=== PATIENT | female | born 1950 | race Caucasian/White ===

== ENCOUNTER 2024-01-27 21:28 | Inpatient (IN) | payer MEDICARE, OTHER, MEDICAID ==
[~2024-01-27] VITALS: Ht 165.1 cm; Wt 83.9 kg
[~2024-01-27 21:28] MED LIST: ACET650T10 PO; AMLO5TAB4 PO; ATOR20TA PO; BACL20TA PO; CALCIUM PO; CLOP75TA15 PO; FURO-151 PO; GABA-534 PO; HYDR-4354 PO; ISOS30TA86 PO; LEVE500T9 PO; LEVO125T PO; LORA-672 PO; LOSA50TA3 PO; MAALOX PO; MAGN400O6 PO; MULTIVITAMIN W/MIN PO; PHEN32.46 PO; SENNA PO; TIZA4CAP PO; VIT PO
[2024-01-27] MEDS ORDERED: LORAZEPAM 2 MG/1 ML VIAL IV ONE (22:30)
[2024-01-27] MEDS ORDERED: levETIRAcetam 500 MG/5 ML VIAL IV ONE (22:35)
[2024-01-27] MEDS: levETIRAcetam IV 500 MG in IV DEXTROSE 5% 100 ML IV ONE (22:42)
[2024-01-27] MEDS: IV NORMAL SALINE 500 ML BAG IV ONE (22:42)
[2024-01-27 22:52] LABS: CALCIUM 9.5 mg/dL (8.5-10.1); CARBON DIOXIDE 31 mmol/L (21-32); CHLORIDE 101 mmol/L (98-107); CREATININE 2.3 mg/dL (0.6-1.3); GLUCOSE 114 mg/dL (74-106); POTASSIUM 2.9 mmol/L (3.5-5.1); SODIUM SERUM 141 mmol/L (136-145); UREA NITROGEN, BLOOD 27 mg/dL (7-18)
[2024-01-27 22:58] LABS: ALANINE AMINOTRANSFERASE 12 U/L (14-59); ALBUMIN 2.8 g/dL (3.4-5.0); ALKALINE PHOSPHATASE 83 U/L (50-136); ASPARTATE AMINOTRANSFERASE 12 U/L (15-37); BILIRUBIN,DIRECT 0.2 mg/dL (0.0-0.2); BILIRUBIN,TOTAL 0.8 mg/dL (0.2-1.0); TOTAL PROTEIN, SERUM 6.1 g/dL (6.4-8.2)
[2024-01-27] MEDS: IV NORMAL SALINE 500 ML IV ONE (23:16)
[2024-01-28] MEDS: POTASSIUM CHLORIDE 50 ML IV SCH (00:13)
[2024-01-28] MEDS ORDERED: LIOT5TAB7 PO (00:23)
[2024-01-28] MEDS ORDERED: [UNRECOGNIZED DRUG - CODE] PO (00:23)
[2024-01-28] MEDS ORDERED: RIBO1TAB4 PO (00:23)
[2024-01-28] MEDS ORDERED: PSYL0.5211 PO (00:23)
[2024-01-28] MEDS ORDERED: SENN-261 PO (00:23)
[2024-01-28] MEDS ORDERED: POLY17PO4 PO (00:23)
[2024-01-28] MEDS ORDERED: norco PO (00:23)
[2024-01-28] MEDS ORDERED: ZINC56.713 TP (00:23)
[2024-01-28] MEDS ORDERED: NA P133E RC (00:23)
[2024-01-28] MEDS ORDERED: BISA10SU11 RC (00:23)
[2024-01-28] MEDS ORDERED: CLON0.3P TD (00:23)
[2024-01-28] MEDS ORDERED: OXYC-132 PO (00:23)
[2024-01-28] MEDS ORDERED: MULT-1045 PO (00:23)
[2024-01-28] MEDS ORDERED: diazepam IM (00:23)
[2024-01-28] MEDS ORDERED: APIX2.5T PO (00:23)
[2024-01-28] MEDS ORDERED: LOSA100T3 PO (00:23)
[2024-01-28] MEDS ORDERED: CLON0.1T PO (00:23)
[2024-01-28] MEDS ORDERED: FULV250S IM (00:23)
[2024-01-28] MEDS ORDERED: LUBI24CA5 PO (00:23)
[2024-01-28] MEDS ORDERED: ATOR10TA PO (00:23)
[2024-01-28] MEDS ORDERED: THYR180T2 PO (00:23)
[2024-01-28] MEDS ORDERED: PREG75CA PO (00:23)
[2024-01-28] MEDS ORDERED: DOCU100C36 PO (00:23)
[2024-01-28 00:25] LABS: BASOPHILS # (AUTO) 0.1 K/UL (0.0-0.2); EOSINOPHILS # (AUTO) 0.1 K/uL (0.0-0.7); EOSINOPHILS % (AUTO) 1.5 % (0.0-7.0); HEMATOCRIT 38.8 % (31.2-41.9); HEMOGLOBIN 12.9 g/dL (10.9-14.3); LYMPHOCYTES # (AUTO) 1.3 K/uL (0.8-4.8); LYMPHOCYTES % (AUTO) 26.7 % (20.5-51.5); MEAN CORPUSCULAR HEMOGLOBIN 33.7 uug (24.7-32.8); MEAN CORPUSCULAR HGB CONC 33 g/dL (32.3-35.6); MEAN CORPUSCULAR VOLUME 101.7 fL (75.5-95.3); MONOCYTES # (AUTO) 0.3 K/uL (0.1-1.30); MONOCYTES % (AUTO) 7.2 % (0.0-11.0); NEUTROPHILS % (AUTO) 62.6 % (38.5-71.5); PLATELET COUNT (AUTO) 192 K/uL (179-408); RED BLOOD CELL COUNT(AUTO) 3.81 MIL/uL (3.63-4.92); RED CELL DISTRIBUTION WIDTH 17.1 % (12.3-17.7); WHITE BLOOD COUNT (AUTO) 4.8 K/uL (3.8-11.8)
[2024-01-28 00:29] LABS: DIFFERENTIAL COMMENT 1
[2024-01-28] MEDS ORDERED: POTASSIUM CHLORIDE 200 ML ONE (00:42)
[2024-01-28] MEDS ORDERED: ONDANSETRON 4 MG/2 ML VIAL IV PRN (01:30)
[2024-01-28] MEDS ORDERED: REMEDY ESSENTIAL ZINC PASTE 113 GM TP PRN (01:30)
[2024-01-28] MEDS ORDERED: MAGNESIUM HYDROXIDE 30 ML LIQUID UDC PO PRN (01:30)
[2024-01-28 05:19] LABS: BASOPHILS # (AUTO) 0.1 K/UL (0.0-0.2); BASOPHILS % (AUTO) 1.3 % (0.0-2.0); EOSINOPHILS # (AUTO) 0.1 K/uL (0.0-0.7); EOSINOPHILS % (AUTO) 1.4 % (0.0-7.0); HEMATOCRIT 40.6 % (31.2-41.9); HEMOGLOBIN 13.1 g/dL (10.9-14.3); LYMPHOCYTES # (AUTO) 1.3 K/uL (0.8-4.8); MEAN CORPUSCULAR HEMOGLOBIN 33.3 uug (24.7-32.8); MEAN CORPUSCULAR HGB CONC 32 g/dL (32.3-35.6); MEAN CORPUSCULAR VOLUME 103.3 fL (75.5-95.3); MONOCYTES # (AUTO) 0.3 K/uL (0.1-1.30); MONOCYTES % (AUTO) 6.1 % (0.0-11.0); NEUTROPHILS # (AUTO) 2.9 K/uL (1.8-8.9); NEUTROPHILS % (AUTO) 63.2 % (38.5-71.5); PLATELET COUNT (AUTO) 175 K/uL (179-408); RED BLOOD CELL COUNT(AUTO) 3.93 MIL/uL (3.63-4.92); RED CELL DISTRIBUTION WIDTH 17.5 % (12.3-17.7); WHITE BLOOD COUNT (AUTO) 4.6 K/uL (3.8-11.8)
[2024-01-28 05:44] LABS: DIFFERENTIAL COMMENT 1
[2024-01-28 05:57] LABS: THYROID STIMULATING HORMONE 1.902 mIU/mL (0.358-3.740)
[2024-01-28 05:59] LABS: ALANINE AMINOTRANSFERASE 11 U/L (14-59); ALBUMIN 2.7 g/dL (3.4-5.0); ALKALINE PHOSPHATASE 83 U/L (50-136); ASPARTATE AMINOTRANSFERASE 7 U/L (15-37); BILIRUBIN,DIRECT 0.2 mg/dL (0.0-0.2); BILIRUBIN,TOTAL 0.8 mg/dL (0.2-1.0); CALCIUM 8.7 mg/dL (8.5-10.1); CARBON DIOXIDE 29 mmol/L (21-32); CHLORIDE 105 mmol/L (98-107); GLUCOSE 104 mg/dL (74-106); MAGNESIUM 1.8 mg/dL (1.8-2.4); PHOSPHOROUS 4.6 mg/dL (2.5-4.9); POTASSIUM 3.6 mmol/L (3.5-5.1); SODIUM SERUM 143 mmol/L (136-145); TOTAL PROTEIN, SERUM 6.2 g/dL (6.4-8.2); UREA NITROGEN, BLOOD 23 mg/dL (7-18)
[2024-01-28] MEDS: PANTOPRAZOLE SODIUM 40 MG TABLET.DR PO SCH (07:00)
[2024-01-28] MEDS: levETIRAcetam IV 1,000 MG in IV DEXTROSE 5% 100 ML IV SCH (08:26)
[2024-01-28] MEDS ORDERED: LORAZEPAM 2 MG/1 ML VIAL ONE (08:46)
[2024-01-28] MEDS: LORAZEPAM 2 MG/1 ML VIAL IV ONE ×2 (08:47→13:46)
[2024-01-28] MEDS ORDERED: levETIRAcetam IV 500 MG in IV DEXTROSE 5% 100 ML IV SCH (09:00)
[2024-01-28] MEDS ORDERED: LORAZEPAM 2 MG/1 ML VIAL IV ONE (13:45)
[2024-01-28 14:48] LABS: *BILIRUBIN,URIN NEGATIVE (NEGATIVE); *CLARITY,URINE CLEAR (CLEAR); *COLOR,URINE YELLOW (YELLOW); *KETONES,URINE NEGATIVE (NEGATIVE); *PROTEIN,URINE 1+ (NEGATIVE); *UROBILINOGEN,URINE 0.2 E.U./dl (NORMAL); LEUKOCYTE ESTERASE ,URINE NEGATIVE (NEGATIVE); NITRITE, URINE NEGATIVE (NEGATIVE); PH,URINE 5.5 (5.0-8.0); UGLUCOSE NEGATIVE (NEGATIVE)
[2024-01-28 14:57] LABS: *BLOOD, URINE TRACE (NEGATIVE)
[2024-01-28] MEDS ORDERED: DIAZ5DIS4 IM (15:18)
[2024-01-28] MEDS ORDERED: HYDR-3976 PO (15:18)
[2024-01-28] MEDS ORDERED: DENO120V SQ (15:21)
[2024-01-28 15:46] LABS: BACTERIA,URINE FEW /HPF (NONE SEEN); RBC,URINE 0-3 /HPF (0-3); SQUAMOUS EPITHELIAL CELL,UR FEW /HPF (NONE SEEN); WBC,URINE 0-3 /HPF (0-3)
[2024-01-28 16:24] VITALS: BP 124/48; TEMP 97.8; O2SAT 93
[2024-01-28] MEDS ORDERED: levETIRAcetam 500 MG TABLET PO SCH (17:00)
[2024-01-28] MEDS ORDERED: Medication Not On Formulary EA (Lubiprostone (Amitiza) 24 MCG) PO SCH (17:00)
[2024-01-28] MEDS ORDERED: LORAZEPAM 2 MG/1 ML VIAL IV PRN (17:00)
[2024-01-28 18:19] VITALS: TEMP 99.3
[2024-01-28] MEDS: BACLOFEN 20 MG TABLET PO SCH (18:25)
[2024-01-28] MEDS: APIXABAN 2.5 MG TABLET PO SCH (18:25)
[2024-01-28] MEDS: IV NS 1000 ML 1,000 ML IV PRN (18:29)
[2024-01-28] MEDS: DOCUSATE SODIUM 100 MG CAPSULE PO SCH (20:39)
[2024-01-28] MEDS: ATORVASTATIN 10 MG TABLET PO SCH (20:40)
[2024-01-28] MEDS: levETIRAcetam 500 MG TABLET PO SCH (20:40)
[2024-01-28] MEDS: SENNOSIDES 1 TABLET PO SCH (20:40)
[2024-01-28] MEDS ORDERED: CLONIDINE-TTS 3 PATCH TD SCH (21:00)
[2024-01-29 00:12] VITALS: BP 96/46; O2SAT 95
[2024-01-29 06:20] VITALS: BP 147/95; TEMP 98.1; O2SAT 94
[2024-01-29] MEDS: LIOTHYRONINE SODIUM 5 MCG TABLET PO SCH (06:45)
[2024-01-29] MEDS: THYROID 60 MG TABLET PO SCH (06:46)
[2024-01-29 07:55] VITALS: BP 137/81; TEMP 98.6; O2SAT 94
[2024-01-29] MEDS ORDERED: Medication Not On Formulary EA (Multivitamin (Multi-Vitamin Daily) 1 EACH) PO SCH (09:00)
[2024-01-29] MEDS ORDERED: THYROID 180 MG PO SCH (09:00)
[2024-01-29 12:00] VITALS: BP 149/59; TEMP 98.1; O2SAT 95
[2024-01-29] MEDS: LOSARTAN POTASSIUM 50 MG TABLET PO SCH (12:39)
[2024-01-29] MEDS: ISOSORBIDE MONONITRATE 30 MG TAB.SR.24H PO SCH (12:40)
[2024-01-29] MEDS: MIRALAX 17 GM POWD.PACK PO SCH (12:40)
[2024-01-29] MEDS: levETIRAcetam IV 1,000 MG in IV DEXTROSE 5% 100 ML IV SCH (12:40)
[2024-01-29] MEDS: MULTIVITAMINS,THERAPEUTIC TABLET PO SCH (13:24)
[2024-01-29] MEDS: HYDROCODONE/APAP 10-325 MG TABLET PO PRN (14:03)
[2024-01-29 16:00] LABS: *BILIRUBIN,URIN NEGATIVE (NEGATIVE); *BLOOD, URINE 3+ (NEGATIVE); *CLARITY,URINE CLEAR (CLEAR); *COLOR,URINE YELLOW (YELLOW); *KETONES,URINE 1+ (NEGATIVE); *PROTEIN,URINE NEGATIVE (NEGATIVE); *UROBILINOGEN,URINE 0.2 E.U./dl (NORMAL); LEUKOCYTE ESTERASE ,URINE NEGATIVE (NEGATIVE); NITRITE, URINE NEGATIVE (NEGATIVE); UGLUCOSE NEGATIVE (NEGATIVE)
[2024-01-29 16:06] LABS: *CREATININE,URINE 32.7 mg/dL (30-125); *URINE TOTAL PROTEIN RANDOM 12.1 mg/dL (<150/24HR)
[2024-01-29 16:19] LABS: BACTERIA,URINE NONE SEEN /HPF (NONE SEEN); RBC,URINE 0-3 /HPF (0-3); SQUAMOUS EPITHELIAL CELL,UR FEW /HPF (NONE SEEN); WBC,URINE 0-3 /HPF (0-3)
[2024-01-29 16:30] VITALS: BP 125/44; TEMP 98; O2SAT 93
[2024-01-29 20:09] VITALS: BP 123/52; TEMP 98; O2SAT 92
[2024-01-30 00:11] VITALS: BP 108/42; TEMP 98.7; O2SAT 93
[2024-01-30 06:27] LABS: BASOPHILS # (AUTO) 0.1 K/UL (0.0-0.2); BASOPHILS % (AUTO) 1.5 % (0.0-2.0); EOSINOPHILS # (AUTO) 0.1 K/uL (0.0-0.7); EOSINOPHILS % (AUTO) 1.9 % (0.0-7.0); HEMATOCRIT 32.8 % (31.2-41.9); LYMPHOCYTES # (AUTO) 1.3 K/uL (0.8-4.8); LYMPHOCYTES % (AUTO) 35.3 % (20.5-51.5); MEAN CORPUSCULAR HEMOGLOBIN 33.8 uug (24.7-32.8); MEAN CORPUSCULAR HGB CONC 34 g/dL (32.3-35.6); MEAN CORPUSCULAR VOLUME 100.8 fL (75.5-95.3); MONOCYTES # (AUTO) 0.3 K/uL (0.1-1.30); MONOCYTES % (AUTO) 8.1 % (0.0-11.0); NEUTROPHILS # (AUTO) 1.9 K/uL (1.8-8.9); NEUTROPHILS % (AUTO) 53.2 % (38.5-71.5); PLATELET COUNT (AUTO) 179 K/uL (179-408); RED BLOOD CELL COUNT(AUTO) 3.26 MIL/uL (3.63-4.92); RED CELL DISTRIBUTION WIDTH 16.5 % (12.3-17.7); WHITE BLOOD COUNT (AUTO) 3.6 K/uL (3.8-11.8)
[2024-01-30 06:32] LABS: CALCIUM 7.8 mg/dL (8.5-10.1); CARBON DIOXIDE 28 mmol/L (21-32); CHLORIDE 108 mmol/L (98-107); CREATININE 0.5 mg/dL (0.6-1.3); GLUCOSE 114 mg/dL (74-106); SODIUM SERUM 143 mmol/L (136-145); UREA NITROGEN, BLOOD 11 mg/dL (7-18)
[2024-01-30 06:37] VITALS: BP 124/49; TEMP 97.8; O2SAT 93
[2024-01-30 06:41] LABS: POTASSIUM 2.7 mmol/L (3.5-5.1)
[2024-01-30 07:37] LABS: DIFFERENTIAL COMMENT 1
[2024-01-30 07:47] VITALS: BP 154/66; TEMP 98.3; O2SAT 97
[2024-01-30] MEDS: POTASSIUM CHLORIDE 50 ML IV SCH (08:23)
[2024-01-30 11:52] VITALS: BP 153/63; TEMP 98.8; O2SAT 95
[2024-01-30] MEDS: CLONIDINE-TTS 3 PATCH TD SCH (15:24)
[2024-01-30 16:01] VITALS: BP 173/70; TEMP 98; O2SAT 96
[2024-01-30 19:43] VITALS: BP 173/69; TEMP 98.2; O2SAT 95
[2024-01-31] MEDS: ACETAMINOPHEN 325 MG TABLET PO PRN (01:00)
[2024-01-31] MEDS: LORAZEPAM 1 MG TABLET PO PRN (01:00)
[2024-01-31 07:26] LABS: BASOPHILS % (AUTO) 1.4 % (0.0-2.0); EOSINOPHILS # (AUTO) 0.1 K/uL (0.0-0.7); EOSINOPHILS % (AUTO) 2.4 % (0.0-7.0); HEMOGLOBIN 10.8 g/dL (10.9-14.3); LYMPHOCYTES # (AUTO) 1.7 K/uL (0.8-4.8); LYMPHOCYTES % (AUTO) 52.4 % (20.5-51.5); MEAN CORPUSCULAR HGB CONC 34 g/dL (32.3-35.6); MEAN CORPUSCULAR VOLUME 100.9 fL (75.5-95.3); MONOCYTES # (AUTO) 0.3 K/uL (0.1-1.30); MONOCYTES % (AUTO) 9.4 % (0.0-11.0); NEUTROPHILS # (AUTO) 1.1 K/uL (1.8-8.9); NEUTROPHILS % (AUTO) 34.4 % (38.5-71.5); PLATELET COUNT (AUTO) 164 K/uL (179-408); RED BLOOD CELL COUNT(AUTO) 3.17 MIL/uL (3.63-4.92); RED CELL DISTRIBUTION WIDTH 16.4 % (12.3-17.7); WHITE BLOOD COUNT (AUTO) 3.2 K/uL (3.8-11.8)
[2024-01-31 07:29] LABS: CARBON DIOXIDE 30 mmol/L (21-32); CHLORIDE 108 mmol/L (98-107); CREATININE 0.5 mg/dL (0.6-1.3); GLUCOSE 98 mg/dL (74-106); POTASSIUM 2.9 mmol/L (3.5-5.1); SODIUM SERUM 144 mmol/L (136-145); UREA NITROGEN, BLOOD 5 mg/dL (7-18)
[2024-01-31 07:34] LABS: DIFFERENTIAL COMMENT 1
[2024-01-31] MEDS: MAGNESIUM SULFATE/D5W 100 ML IV SCH (09:26)
[2024-01-31] MEDS: POTASSIUM CHLORIDE 20 MEQ TAB.PRT.SR PO SCH (10:15)
[2024-01-31] MEDS: LIDOCAINE 5% PATCH TD SCH (10:54)
[2024-01-31 11:50] VITALS: BP 162/71; TEMP 98.4; O2SAT 94
[2024-01-31] MEDS: POTASSIUM CHLORIDE 10 MEQ TAB.PRT.SR PO ONE (12:29)
[2024-01-31 16:20] VITALS: BP 166/54; TEMP 97.6; O2SAT 95
[2024-01-31] MEDS: CLONIDINE HCL 0.1 MG TABLET PO PRN (18:17)
[2024-01-31 19:57] VITALS: BP 149/74; TEMP 97.9; O2SAT 92
[2024-02-01 06:39] VITALS: BP 128/52; TEMP 98.7; O2SAT 90
[2024-02-01 07:26] LABS: BASOPHILS # (AUTO) 0.1 K/UL (0.0-0.2); BASOPHILS % (AUTO) 1.8 % (0.0-2.0); EOSINOPHILS # (AUTO) 0.1 K/uL (0.0-0.7); EOSINOPHILS % (AUTO) 3.6 % (0.0-7.0); HEMATOCRIT 33.1 % (31.2-41.9); HEMOGLOBIN 10.9 g/dL (10.9-14.3); LYMPHOCYTES # (AUTO) 1.4 K/uL (0.8-4.8); LYMPHOCYTES % (AUTO) 43.5 % (20.5-51.5); MEAN CORPUSCULAR HEMOGLOBIN 33.7 uug (24.7-32.8); MEAN CORPUSCULAR HGB CONC 33 g/dL (32.3-35.6); MEAN CORPUSCULAR VOLUME 101.7 fL (75.5-95.3); MONOCYTES # (AUTO) 0.3 K/uL (0.1-1.30); MONOCYTES % (AUTO) 9.2 % (0.0-11.0); NEUTROPHILS # (AUTO) 1.3 K/uL (1.8-8.9); NEUTROPHILS % (AUTO) 41.9 % (38.5-71.5); PLATELET COUNT (AUTO) 154 K/uL (179-408); RED BLOOD CELL COUNT(AUTO) 3.25 MIL/uL (3.63-4.92); RED CELL DISTRIBUTION WIDTH 17.4 % (12.3-17.7); WHITE BLOOD COUNT (AUTO) 3.2 K/uL (3.8-11.8)
[2024-02-01 07:28] LABS: DIFFERENTIAL COMMENT 1
[2024-02-01 07:29] LABS: CALCIUM 7.9 mg/dL (8.5-10.1); CARBON DIOXIDE 26 mmol/L (21-32); CHLORIDE 110 mmol/L (98-107); CREATININE 0.5 mg/dL (0.6-1.3); GLUCOSE 94 mg/dL (74-106); POTASSIUM 3.6 mmol/L (3.5-5.1); SODIUM SERUM 142 mmol/L (136-145); UREA NITROGEN, BLOOD 7 mg/dL (7-18)
[2024-02-01 11:22] VITALS: BP 148/64; TEMP 98.3; O2SAT 94
[2024-02-01] MEDS ORDERED: LIDO30AD10 TD (13:47)
[2024-02-01] MEDS ORDERED: LEVE500T9 PO (13:47)
[2024-02-01] MEDS ORDERED: LOSA50TA3 PO (13:47)
[2024-02-01] MEDS ORDERED: THYR60TA2 PO (13:47)
[2024-02-01] MEDS ORDERED: CLON0.3P TD (13:47)
[2024-02-01] MEDS ORDERED: PANT40TA49 PO (13:47)
[2024-02-01] MEDS ORDERED: MULT-24 PO (13:47)
[2024-02-01 14:50] LABS: THYROID STIMULATING HORMONE 1.947 mIU/mL (0.358-3.740)
[2024-02-01 15:49] VITALS: BP 140/61; TEMP 97.9; O2SAT 94
[2024-02-01] MEDS ORDERED: levETIRAcetam 500 MG TABLET PO SCH (21:00)
[2024-02-03] MEDS ORDERED: CLONIDINE-TTS 3 PATCH TD SCH (21:00)
[2024-02-06] MEDS ORDERED: CLONIDINE-TTS 3 PATCH TD SCH (09:00)
== END 2024-02-01 17:35 | DRG 100 ==
LOC: ER 21:29 → TELE-TD3 01-28 14:43 → TELE3 01-29 10:15 → MEDSURG3 01-30 10:30
PROVIDERS: ADMIT Nurse Practitioner Family; ATTEND Nurse Practitioner Acute Care
PROC: 05HA33Z Insertion of Infusion Device into Left Brachial Vein, Percutaneous Approach (ICD-10-PCS; principal; 2024-01-28)
DX: G40.909 Epilepsy, unspecified, not intractable, without status epilepticus (principal); N17.0 Acute kidney failure with tubular necrosis; I69.351 Hemiplegia and hemiparesis following cerebral infarction affecting right dominant side; E44.0 Moderate protein-calorie malnutrition; C79.51 Secondary malignant neoplasm of bone; I69.320 Aphasia following cerebral infarction; E66.9 Obesity, unspecified; Z68.30 Body mass index [BMI] 30.0-30.9, adult; E03.9 Hypothyroidism, unspecified; Z79.890 Hormone replacement therapy; E88.09 Other disorders of plasma-protein metabolism, not elsewhere classified; Z88.2 Allergy status to sulfonamides; Z88.6 Allergy status to analgesic agent; Z88.0 Allergy status to penicillin; E87.6 Hypokalemia; G89.29 Other chronic pain; Z79.899 Other long term (current) drug therapy; Z85.3 Personal history of malignant neoplasm of breast; Z79.02 Long term (current) use of antithrombotics/antiplatelets; E78.5 Hyperlipidemia, unspecified; Z86.79 Personal history of other diseases of the circulatory system; M81.0 Age-related osteoporosis without current pathological fracture; Z79.01 Long term (current) use of anticoagulants; I25.10 Atherosclerotic heart disease of native coronary artery without angina pectoris; G62.9 Polyneuropathy, unspecified; G20.A1 Parkinson's disease without dyskinesia, without mention of fluctuations; F02.80 Dementia in other diseases classified elsewhere, unspecified severity, without behavioral disturbance, psychotic disturbance, mood disturbance, and anxiety
CPT/HCPCS: 36415; 70450; 73030; 73060; 76770; 83605; 83735; 83921; 84100; 84300; 84443; 85025; 93005; A4606; A4663; A6213; C1758; G0378; J1953; J2060; J3475; J3480; J7040